=== PATIENT | male | born 1975 | race Caucasian/White ===

== ENCOUNTER 2017-02-16 21:26 | Emergency (ER) | payer MEDICARE, OTHER | END 2017-02-16 23:09 | disposition home or self-care (01) | LOC: ER 21:26 | DX: R07.89 Other chest pain (principal); R11.0 Nausea; M25.512 Pain in left shoulder; R06.02 Shortness of breath; F41.9 Anxiety disorder, unspecified; K21.9 Gastro-esophageal reflux disease without esophagitis; I10 Essential (primary) hypertension; I25.2 Old myocardial infarction; Z90.49 Acquired absence of other specified parts of digestive tract; Z95.5 Presence of coronary angioplasty implant and graft; Z79.82 Long term (current) use of aspirin; Z88.1 Allergy status to other antibiotic agents | CPT/HCPCS: 36415; 96361; 96374; 96375 ==